=== PATIENT | male | born 1975 | race American Indian/Alaskan Native ===

== ENCOUNTER 2017-07-31 17:16 | Outpatient (CLI) | payer OTHER | END 2017-07-31 17:17 | disposition home or self-care (01) | LOC: BICRAD 17:16 | PROVIDERS: ATTEND Family Medicine | DX: R76.11 Nonspecific reaction to tuberculin skin test without active tuberculosis (principal); J98.4 Other disorders of lung | CPT/HCPCS: 71045 ==